=== PATIENT | female | born 1965 | race Caucasian/White ===

== ENCOUNTER → 2019-07-04 | Day surgery (SDC) | payer BC ==
[2019-06-26 12:04] VITALS: BMI 35.0
[~2019-07-04] MED LIST: ASPIRIN COATED 81 MG TABLET.EC PO SCH; EZETIMIBE 10 MG TABLET (FP) PO SCH; HYDROCHLOROTHIAZIDE 25 MG TABLET (FP) PO SCH; LISINOPRIL 20 MG TABLET (FP) PO SCH; PATIENT'S OWN MEDICATION (NON-FORMULARY) (Lisinopril/Hydrochlorothiazide [Lisinopril-Hctz PO SCH; PATIENT'S OWN MEDICATION (NON-FORMULARY) (Sertraline Hcl [Zoloft] 100 MG) PO SCH; ROSUVASTATIN CA 20 MG TABLET (FP) PO SCH; SERTRALINE HCL 50 MG TABLET (FP) PO SCH; amLODIPine BESYLATE 10 MG TABLET (FP) PO SCH; metFORMIN HCL 500 MG TABLET (FP) PO SCH
[2019-07-04 13:43] VITALS: BP 143/90; PULSE 79; TEMP 98.2
== END | disposition home or self-care (01) ==
LOC: FASU 13:20
PROVIDERS: ATTEND Orthopaedic Surgery Orthopaedic Surgery of the Spine
PROC: 0Y6T0Z2 Detachment at Right 3rd Toe, Mid, Open Approach (ICD-10-PCS; principal; 2019-07-04)
DX: Z53.8 Procedure and treatment not carried out for other reasons (principal); S97.81XA Crushing injury of right foot, initial encounter; X58.XXXA Exposure to other specified factors, initial encounter; Y93.9 Activity, unspecified; Y92.9 Unspecified place or not applicable
CPT/HCPCS: 82962